=== PATIENT | female | born 1960 | race Two or more races ===

== ENCOUNTER 2022-05-03 12:58 | Emergency (ER) | payer OTHER ==
[~2022-05-03] VITALS: Ht 170.2 cm; Wt 60.0 kg
[2022-05-03 13:46] LABS: BASOPHILS % 0.6 % (0.0-2.0); EOSINOPHILS % 2.6 % (0.0-5.0); HEMATOCRIT. 40.3 % (36.0-48.0); HEMOGLOBIN. 13.5 g/dL (12.0-16.0); LYMPHOCYTES % 22.8 % (20.0-50.0); MEAN CORPUSCULAR HEMOGLOBIN 29.7 pg (28.0-32.0); MEAN CORPUSCULAR VOLUME 88.5 fL (81.0-99.0); MONOCYTES % 10.1 % (2.0-8.0); NEUTROPHILS % 63.9 % (40.0-76.0); PLATELET 214 x1000/uL (130-400); RED BLOOD CELL COUNT 4.56 mill/uL (4.2-5.4); RED CELL DISTRIBUTION WIDTH 13.5 % (11.6-14.6)
[2022-05-03 14:00] LABS: CHLORIDE 103 mEq/L (98-107)
[2022-05-03 14:09] LABS: ETHANOL BLOOD < 10 mg/dL
[2022-05-03 15:06] LABS: *AMPHETAMINES SCREEN URINE NEGATIVE (NEGATIVE); *BARBITURATES SCREEN URINE NEGATIVE (NEGATIVE); *BENZODIAZEPINES SCREEN URINE NEGATIVE (NEGATIVE); *COCAINE SCREEN URINE NEGATIVE (NEGATIVE); CANNABINOID URINE SCREEN NEGATIVE (NEGATIVE); METHADONE URINE SCREEN NEGATIVE (NEGATIVE); OPIATES URINE SCREEN NEGATIVE (NEGATIVE); PHENCYCLIDINE URINE SCREEN NEGATIVE (NEGATIVE)
[2022-05-03] MEDS ORDERED: NITROGLYCERIN OINT 1GM/INCH UDPKT TD NR (15:15)
[2022-05-03] MEDS ORDERED: ASPIRIN 325MG EC TABLET PO NR (15:15)
[2022-05-03] MEDS ORDERED: ACETAMINOPHEN 325MG TABLET PO NR (18:15)
[2022-05-03 23:12] VITALS: BP 135/80
== END 2022-05-03 23:41 | disposition short-term general hospital (02) ==
LOC: ER 12:58
DX: R07.89 Other chest pain (principal); I10 Essential (primary) hypertension; Z20.822 Contact with and (suspected) exposure to COVID-19; Z98.890 Other specified postprocedural states
CPT/HCPCS: 36415; 71045; 80053; 80305; 80320; 83880; 84484; 85025; 87426; 93005; 99285; C9803; G0480